=== PATIENT | female | born 1950 | race Caucasian/White ===

== ENCOUNTER 2018-07-02 02:31 | Inpatient (IN) | payer MEDICARE ==
[2018-07-02 04:14] LABS: Bilirubin Negative (Negative); Blood, Urine Negative (Negative); Clarity CLOUDY (Clear); Glucose, Urine (Dipstick) 100 mg/dL (Negative); Leukocyte Small (Negative); Nitrite Negative (Negative); Protein, Urine (Dipstick) Negative (Neg-Trace); Specific Gravity, Urine 1.013 (1.002-1.036); Urobilinogen 0.2 mg/dL (0.2-1.0); pH, Urine 5.5 (5.0-9.0)
[2018-07-02 04:18] LABS: CKMB 1.1 ng/mL (0-6.6)
[2018-07-02 04:33] LABS: Bacteria/HPF 3+ HPF (None Seen); Hyaline Casts/LPF NONE SEEN LPF (0-3 Hyaline); RBC/HPF 0-3 HPF (0-3); Squamous Epithelial 0-3 HPF (0-3)
[2018-07-02] MEDS ORDERED: cefTRIAXone\\ROCEPHIN 1 GM VIAL ONE (05:53)
[2018-07-02] MEDS ORDERED: Ondansetron ODT 4 MG TAB PO PRN (06:11)
[2018-07-02] MEDS ORDERED: Acetaminophen 325 MG TAB PO PRN (06:11)
[2018-07-02] MEDS ORDERED: Ondansetron PF 4 MG/2 ML Vial IVP PRN (06:11)
[2018-07-02] MEDS ORDERED: Dextrose 5% in Water 1,000 ML IV PRN (06:13)
[2018-07-02] MEDS ORDERED: Dextrose 50% Abboject 50 ML SYRINGE SLOW IVP PRN (06:13)
[2018-07-02] MEDS ORDERED: Diltiazem 125 MG in Sodium Chloride 0.9% 100 ML IVPB SCH (06:45)
[2018-07-02 07:03] LABS: Troponin I 0.043 ng/mL (< 0.028)
--- NOTE | 2018-07-02 07:48 | HP ---
PRIMARY CARE DOCTOR: CODE STATUS: Full code. TIME OF EVALUATION: 6 a.m. CHIEF COMPLAINT: Chest tightness and feeling weak, symptoms started around 2 p.m., lasted till the patient got to the hospital with no clear triggers. No alleviating factors. The patient reported that this is new for her. She reported that she has not had any history of atrial fibrillation. Also, she does have a history of PAD, that has been treated by Dr. Krishnamurthy. She reported having stents over the lower extremity. REVIEW OF SYSTEMS: CONSTITUTIONAL: No fever or chills. The patient reported generalized weakness. RESPIRATORY: No cough, sputum production, or shortness of breath. CARDIOVASCULAR: Chest pain in the epigastric area. No specific radiation, associated with palpitations. GASTROINTESTINAL: No nausea. No vomiting, diarrhea, or abdominal pain. MISSION SUPPORT SPECIALIST: No dizziness, headache, or feeling lightheaded. GENITOURINARY: No burning on urination. EXTREMITIES: No leg swelling. All other systems were reviewed and negative except for the findings mentioned above. PAST MEDICAL HISTORY: Includes coronary artery disease, congestive heart failure, diabetes type 2 non-insulin, hypertension. PSYCH HISTORY: No previous psych history. FAMILY HISTORY: Reviewed and non contributory to current presentation. SOCIAL HISTORY: No alcohol. No drugs. No smoking history. KNOWN ALLERGIES: . REPORTED MEDICATIONS: 1. Aspirin. 2. Clopidogrel. 3. Isosorbide mononitrate. 4. Lisinopril. 5. Simvastatin. 6. Toprol-XL. 7. Levemir. 8. NovoLog. PHYSICAL EXAMINATION: VITAL SIGNS: On presentation, blood pressure 148/88 with heart rate 91, respiratory rate was 26, and O2 saturation 94% on room air. GENERAL APPEARANCE: The patient is alert, oriented, not in acute distress. HEENT: Eyes; normal conjunctivae. Moist oral mucosa. Anicteric. No JVD. RESPIRATORY: Bilateral air entry. No rales. No wheezes. Symmetric expansion. CARDIOVASCULAR: The patient has regular rhythm, tachycardia, no murmurs, no gallop, no edema. ABDOMEN: Soft. Normal bowel sounds. MUSCULOSKELETAL: Baseline range of motion and strength. No tenderness. SKIN: Warm and intact. No pallor. No rash. No redness. Peripheral pulses are present. Capillary refill seems to be intact. NEUROLOGIC: No evidence of any new focal weakness. Baseline speech. Cranial nerves seems to be intact. PSYCH: The patient is in good mood. No anxiety. Optimal judgment. IMAGING DATA: EKG was reviewed. The patient has had fibrillation with a rate of 93, ND undetermined, QRS 84, QT corrected 479. LABORATORY DATA: Labs are reviewed. The patient has beta natriuretic peptide of 502. TSH 0.134. Troponin 0.041. The urine was done and shows white count in urine with glucosuria, 3+ bacteria. Hematology; white count 9.9, hemoglobin 11.9, MCV 84, platelet count 261. VBG was done, pH is 7.42, pCO2 of 42, pO2 of 89. Chemistry ; potassium 5, serum sodium 137, chloride 102, carbon dioxide 25, BUN 26, creatinine 1.0, GFR 51, glucose 211, calcium 9.8, magnesium 2.3, total bilirubin 0.5, direct bilirubin 0.2. ASTs and ALTs were normal. Troponin 0.041 with beta natriuretic peptide of 502. ASSESSMENT AND PLAN: The patient will be placed in the hospital with following medical problems: 1. Atrial fibrillation with RVR: The patient has been started on Cardizem drip. We will consult Cardiology. We will follow recommendations. 2. Uncontrolled diabetes with blood sugar of 211. We will start the patient on sliding scale for optimal control. Diabetic diet is recommended. 3. Mildly elevated troponin. This could be secondary to underlying arrhythmia due to demand ischemia. We will monitor. We will trend troponins. We will treat accordingly. 4. History of peripheral vascular disease, this is chronic, stable, reconcile home medications. Can be followed as outpatient. 5. History of congestive heart failure. This is chronic, seems to be stable, we will reconcile home medications. 6. Uncontrolled hypertension, on presentation with systolic blood pressure 148, reconcile home medications and adjust as needed. 7. Deep venous thrombosis prophylaxis. Job ID: [id number] [facility]
[2018-07-02] MEDS ORDERED: Furosemide 40 MG/4 ML VIAL ONE (07:52)
[2018-07-02] MEDS ORDERED: Senokot S 8.6-50 MG TAB PO PRN (08:44)
[2018-07-02] MEDS ORDERED: Loratadine 10 MG TAB PO PRN (08:44)
[2018-07-02] MEDS ORDERED: Artificial Tears 18 DROP/0.9 ML EA EYE PRN (08:44)
[2018-07-02] MEDS ORDERED: Cepastat Lozenges 1 LOZ PO PRN (08:44)
[2018-07-02] MEDS ORDERED: Eucerin (Mineral Oil/Petrolatum,White) 30 gm Jar TOP PRN (08:44)
[2018-07-02] MEDS ORDERED: Bisacodyl 10 MG SUPP PR PRN (08:44)
[2018-07-02] MEDS ORDERED: Diabetic Tussin 200 MG/10 ML UDCUP PO PRN (08:44)
[2018-07-02] MEDS ORDERED: Sodium Chloride 0.65% Nasal 44 ML BOT EA NARE PRN (08:44)
[2018-07-02] MEDS ORDERED: Loperamide HCl 2 MG CAP PO PRN (08:44)
[2018-07-02] MEDS ORDERED: Zolpidem Tartrate 5 MG TAB PO PRN (08:44)
[2018-07-02] MEDS ORDERED: Labetalol HCl 100 MG/20 ML VIAL SLOW IVP PRN (08:44)
[2018-07-02] MEDS ORDERED: HumaLOG 300 UNITS/3 ML VIAL ONE ×2 (08:49→17:16)
[2018-07-02] MEDS: HumaLOG 300 UNITS/3 ML VIAL SC PRN ×2 (08:55→17:20)
[2018-07-02 09:54] LABS: Troponin I 0.049 ng/mL (< 0.028)
--- NOTE | 2018-07-02 10:31 | PDOC.PN ---
- Subjective Encounter Start Date: 07/02/18 Encounter Start Time: 07:00 -: old records requested/rev Patient seen and examined. No new complaints. No overnight events - Objective Resuscitation Status - Order Detail: 07/02/18 06:11 Resuscitation Status Routine Resuscitation Status: FULL: Full Resuscitation MAR Reviewed: Yes Additional Labs: Accuchecks 07/02/18 08:34 POC Glucose 333 H Radiology Reviewed by me: Yes EKG Reviewed by me: Yes Phys Exam - Physical Examination Constitutional: NAD HEENT: PERRLA, moist MMs, sclera anicteric Neck: no JVD, supple Respiratory: no wheezing, no rales, no rhonchi Cardiovascular: no significant murmur, irregular Gastrointestinal: soft, non-tender, no distention, positive bowel sounds Musculoskeletal: no edema, pulses present Neurological: non-focal, normal sensation Lymphatic: no nodes Psychiatric: normal affect Skin: no rash, normal turgor Dx/Plan (1) Atrial fibrillation with RVR Code(s): I48.91 - UNSPECIFIED ATRIAL FIBRILLATION Status: Acute (2) Type [address] elevation Code(s): I21.A1 - MYOCARDIAL INFARCTION TYPE 2 Status: Acute (3) Diabetes type 2, controlled Code(s): E11.9 - TYPE 2 DIABETES MELLITUS WITHOUT COMPLICATIONS Status: Chronic (4) Hypertension Code(s): I10 - ESSENTIAL (PRIMARY) HYPERTENSION Status: Chronic (5) Stage C chronic diastolic congestive heart failure Code(s): I50.32 - CHRONIC DIASTOLIC (CONGESTIVE) HEART FAILURE Status: Chronic - Plan cont current plan of care * start home dose of lantus * continue cardizem drip * change admission to [facility] as she appears stable with current treatment * cardiology consulted * will repeat labs * medication reviewed as below * symptomatic treatment. Review of Systems - Review of Systems ENT: negative: Ear Pain, Ear Discharge, Nose Pain, Nose Discharge, Nose Congestion, Mouth Pain, Mouth Swelling, Throat Pain, Throat Swelling, Other Respiratory: negative: Cough, Dry, Shortness of Breath, Hemoptysis, SOB with Excertion, Pleuritic Pain, Sputum, Wheezing Cardiovascular: negative: chest pain, palpitations, orthopnea, paroxysmal nocturnal dyspnea, edema, light headedness, other Gastrointestinal: negative: Nausea, Vomiting, Abdominal Pain, Diarrhea, Constipation, Melena, Hematochezia, Other Genitourinary: negative: Dysuria, Frequency, Incontinence, Hematuria, Retention , Other Musculoskeletal: negative: Neck Pain, Shoulder Pain, Arm Pain, Back Pain, Hand Pain, Leg Pain, Foot Pain, Other - Medications/Allergies Allergies/Adverse Reactions: Allergies Allergy/AdvReac Type Severity Reaction Status Date / Time codeine Allergy Mild Verified 12/19/12 03:58 Medications: Current Medications Acetaminophen (Tylenol) 650 mg PO Q4H PRN PRN Reason: Headache/Fever/Mild Pain (1-3) Artificial Tears (Tears Naturale) 2 drop EA EYE PRN PRN PRN Reason: Dry Eyes Aspirin (Aspirin Chewable) 81 mg PO DAILY JERRICA Atorvastatin Calcium (Lipitor) 20 mg PO HS JERRICA Bisacodyl (Dulcolax) 10 mg IA DAILYPRN PRN PRN Reason: Constipation Clopidogrel Bisulfate (Plavix) 75 mg PO DAILY JERRICA Dextrose/Water (Dextrose 50%) 25 gm SLOW IVP PRN PRN PRN Reason: Hypoglycemia Enoxaparin Sodium (Lovenox) 40 mg SC 0900 JERRICA Glucagon (Glucagon) 1 mg IM PRN PRN PRN Reason: Hypoglycemia Guaifenesin (Robitussin Sf) 200 mg PO Q4H PRN PRN Reason: Cough Dextrose/Water (D5w) 1,000 mls @ 0 mls/hr IV .Q0M PRN PRN Reason: Hypoglycemia Diltiazem HCl 125 mg/ Sodium (Chloride) 125 mls @ 5 mls/hr IVPB INF JERRICA; Protocol Insulin Glargine 30 units/ (Miscellaneous Medication) 0.3 mls @ 0 mls/hr SC HS [facility] Insulin Glargine 80 units/ (Miscellaneous Medication) 0.8 mls @ 0 mls/hr SC QAM [facility] Insulin Human Lispro (Humalog) 0 units SC .MILD SLIDING SCALE PRN PRN Reason: Mild Correctional Scale Last Admin: 07/02/18 08:55 Dose: 5 unit Labetalol HCl (Normodyne) 20 mg SLOW IVP Q4H PRN PRN Reason: SBP > 180 and HR >/= 70 Lisinopril (Zestril) 10 mg PO DAILY [facility] Loperamide HCl (Imodium) 2 mg PO PRN PRN PRN Reason: Diarrhea/Loose Stools Loratadine (Claritin) 10 mg PO DAILYPRN PRN PRN Reason: Sinus Symptoms Metoprolol Succinate (Toprol Xl) 25 mg PO DAILY JERRICA Mineral Oil/White Petrolatum (Eucerin Cream) 0 gm TOP BIDPRN PRN PRN Reason: Dry Skin Ondansetron HCl (Zofran Odt) 4 mg PO Q6H PRN PRN Reason: Nausea/Vomiting Ondansetron HCl (Zofran) 4 mg IVP Q6H PRN PRN Reason: Nausea/Vomiting Senna/Docusate Sodium (Senokot S) 2 tab PO BID PRN PRN Reason: Constipation Sodium Chloride (Flush - Normal Saline) 10 ml IVF Q12HR JERRICA Sodium Chloride (Flush - Normal Saline) 10 ml IVF PRN PRN PRN Reason: Saline Flush Sodium Chloride ([place] Nasal [place] 0.65%) 0 ml EA NARE QIDPRN PRN PRN Reason: Nasal Congestion Throat Lozenges (Cepastat Lozenges) 1 dany PO Q2H PRN PRN Reason: Sore Throat Zolpidem Tartrate (Ambien) 5 mg PO HSPRN PRN PRN Reason: Insomnia
[2018-07-02] MEDS: Enoxaparin Sodium 40 MG/0.4 ML SYRINGE SC SCH (10:40)
[2018-07-02] MEDS: Clopidogrel Bisulfate 75 MG TAB PO SCH (10:40)
[2018-07-02] MEDS: Lisinopril 10 MG TAB PO SCH (10:40)
[2018-07-02] MEDS: Aspirin Chewable 81 MG TAB PO SCH (10:40)
[2018-07-02] MEDS ORDERED: Metoprolol Tartrate 25 MG TAB ONE (10:46)
[2018-07-02] MEDS ORDERED: Clopidogrel Bisulfate 75 MG TAB ONE (10:46)
[2018-07-02] MEDS ORDERED: Aspirin Chewable 81 MG TAB ONE (10:46)
[2018-07-02] MEDS ORDERED: Enoxaparin Sodium 40 MG/0.4 ML SYRINGE ONE (10:46)
[2018-07-02] MEDS ORDERED: Lisinopril 10 MG TAB ONE (10:46)
[2018-07-02 18:28] VITALS: BMI 30.8
[2018-07-02] MEDS: Atorvastatin Calcium 20 MG TAB PO SCH (20:52)
[2018-07-02] MEDS ORDERED: Simvastatin 40 MG TAB PO SCH (21:00)
[2018-07-02] MEDS: Insulin Glargine 30 UNITS in Pre-Filled Syringe 1 EACH SC SCH (22:34)
[2018-07-03] MEDS: HumaLOG 300 UNITS/3 ML VIAL SC PRN ×2 (03:01→06:06)
[2018-07-03 05:19] LABS: #Eosinphils 0.1 thou/uL (0.0-0.7); #Lymphocytes 1.2 thou/uL (1.20-3.40); #Monocytes 0.8 thou/uL (0.11-0.59); #Neutrophils 5.9 thou/uL (1.40-6.50); %Basophils 0.5 % (0.0-1.0); %Eosinophils 0.7 % (0.0-10.0); %Lymphocytes 15.1 % (21.0-51.0); %Monocytes 10.2 % (0.0-10.0); %Neutrophils 73.5 % (42.0-75.0); Hemoglobin 13.3 g/dL (12.0-16.0); Mean Corpuscular HGB CONC 32.6 g/dL (32.0-36.0); Mean Corpuscular Hemoglobin 28.1 pg (27.0-31.0); Mean Corpuscular Volume 86.4 fL (78.0-98.0); Mean Platelet Volume 7.7 fL (7.4-10.4); Platelet Count 282 thou/uL (130-400); RBC Distribution Width 12.9 % (11.5-14.5); Red Blood Cell (RBC) Count 4.73 mill/uL (4.20-5.40); White Blood Cell (WBC) Count 8.1 thou/uL (4.8-10.8)
[2018-07-03 05:33] LABS: ALT (SGPT) 25 U/L (8-55); AST (SGOT) 21 U/L (5-34); Albumin 4.2 g/dL (3.4-4.8); Alkaline Phosphatase 213 U/L (40-150); Bilirubin, Direct 0.2 mg/dL (0.1-0.3); Bilirubin, Total 0.5 mg/dL (0.2-1.2)
[2018-07-03 05:39] LABS: Anion Gap 15 mmol/L (10-20); BUN (Urea Nitrogen) 23 mg/dL (9.8-20.1); Calc. Creatinine Clearance 48 mL/min (70-130); Calcium 9.9 mg/dL (7.8-10.44); Carbon Dioxide 26 mmol/L (23-31); Cardiac Risk 4.5 (Less than 4.5); Chloride 100 mmol/L (98-107); Cholesterol 209 mg/dl (< 200 Desired); Estimated GFR-MDRD 42; Glucose 347 mg/dL (80-115); HDL Cholesterol 46 mg/dL (>60 Neg Risk); LDL Cholesterol, Calculated 128 mg/dL; Potassium 4.1 mmol/L (3.5-5.1); Sodium 137 mmol/L (136-145); Triglycerides 175 mg/dL (Less than 150); Uric Acid 7.6 mg/dL (2.6-6.0)
[2018-07-03] MEDS: Clopidogrel Bisulfate 75 MG TAB PO SCH (09:30)
[2018-07-03] MEDS: Lisinopril 10 MG TAB PO SCH (09:30)
[2018-07-03] MEDS: Insulin Glargine 80 UNITS in Pre-Filled Syringe 1 EACH SC SCH (09:31)
[2018-07-03] MEDS: Aspirin Chewable 81 MG TAB PO SCH (09:31)
[2018-07-03] MEDS: Enoxaparin Sodium 40 MG/0.4 ML SYRINGE SC SCH (09:31)
--- NOTE | 2018-07-03 10:10 | PDOC.PN ---
- Subjective Encounter Start Date: 07/03/18 Encounter Start Time: 10:05 Subjective: f/u for A-fib RVR with Type II AR on Cardizem gtt. States her glucose -: is erratic bc she is receiving Lantus instead of her home Levemir. - Objective Resuscitation Status - Order Detail: 07/02/18 06:11 Resuscitation Status Routine Resuscitation Status: FULL: Full Resuscitation MAR Reviewed: Yes Vital Signs & Weight: Vital Signs (12 hours) Temp Pulse Resp BP BP Pulse Ox 07/03/18 09:30 150/91 H 07/03/18 07:41 99.3 F 90 16 157/68 H 93 L 07/03/18 04:00 98.3 F 99 19 166/70 H 95 07/03/18 00:00 98.4 F 101 H 19 120/64 95 Weight Weight 158 lb Result Diagrams: 07/03/18 04:54 07/03/18 04:54 Additional Labs: Accuchecks 07/03/18 07/03/18 07/02/18 06:04 02:20 21:12 POC Glucose 321 H 386 H 379 H 07/02/18 07/02/18 17:13 17:12 POC Glucose 473 H 443 H Laboratory Tests 05/13/14 04/29/18 07/01/18 09:59 10:10 21:10 Creatinine 1.01 1.06 Uric Acid Triglycerides Cholesterol LDL Cholesterol, Calc HDL Cholesterol TSH 3rd Generation 0.6721 Free T4 Free T3 07/02/18 07/02/18 07/02/18 03:55 03:55 06:20 Creatinine Uric Acid Triglycerides Cholesterol LDL Cholesterol, Calc HDL Cholesterol TSH 3rd Generation 0.1346 L Free T4 1.01 Free T3 2.56 07/03/18 04:54 Creatinine Uric Acid 7.6 H Triglycerides 175 H Cholesterol 209 H LDL Cholesterol, Calc 128 HDL Cholesterol 46 TSH 3rd Generation Free T4 Free T3 Radiology Reviewed by me: Yes (2D echo - EF 60-65%, mod-severe LAE, pulm press 70mmHg) EKG Reviewed by me: Yes (Tele - A-fib in 90's) Phys Exam - Physical Examination Constitutional: NAD HEENT: PERRLA, sclera anicteric, oral pharynx no lesions Neck: no nodes, no JVD, supple, full ROM Respiratory: no wheezing, no rales, no rhonchi, clear to auscultation bilateral S1, S2 Cardiovascular: no rub, gallop, irregular Gastrointestinal: soft, non-tender, no distention, positive bowel sounds Musculoskeletal: no edema, pulses present Neurological: normal sensation, moves all 4 limbs Psychiatric: A&O x 3 Skin: normal turgor, cap refill <2 seconds Dx/Plan (1) Atrial fibrillation with RVR Code(s): I48.91 - UNSPECIFIED ATRIAL FIBRILLATION Status: Acute Comment: Wean off Cardizem gtt, start Diltiazem 60mg BID, Continue Metoprolol 25mg daily , CHADsVasc2 score 4, consider OAC options (2) RIVKA (acute kidney injury) Code(s): N17.9 - ACUTE KIDNEY FAILURE, UNSPECIFIED Status: Acute Comment: Mild elevation above baseline, avoid nephrotoxic meds and limit contrast exposure, serial creatinine (3) Type [address] elevation Code(s): I21.A1 - MYOCARDIAL INFARCTION TYPE 2 Status: Acute Comment: Suspected given A-fib RVR, ASA/Plavix, Metoprolol, Lipitor (4) Hypertension Code(s): I10 - ESSENTIAL (PRIMARY) HYPERTENSION Status: Chronic Qualifiers: Hypertension type: essential hypertension Qualified Code(s): I10 - Essential (primary) hypertension Comment: Resume home BP regimen, serial monitoring titrating to optimal response (5) Stage C chronic diastolic congestive heart failure Code(s): I50.32 - CHRONIC DIASTOLIC (CONGESTIVE) HEART FAILURE Status: Chronic Comment: Appears compensated currently, EF 60-65% (6) CKD (chronic kidney disease), stage III Code(s): N18.3 - CHRONIC KIDNEY DISEASE, STAGE 3 (MODERATE) Status: Chronic Comment: Avoid nephrotoxic agents and limit contrast exposure - Plan social problems specialist, out of bed/ambulate, DVT proph w/SCDs Stable currently -: Wean off Cardizem gtt -: Start Diltiazem 60mg BID -: Continue Metoprolol 25mg daily -: Start Eliquis 5mg po BID * Add Novalog 20u AC * Cardiology consult pending
[2018-07-03] MEDS ORDERED: Diltiazem HCl SR 60 mg Capsule PO SCH ×2 (10:15→11:00)
[2018-07-03] MEDS ORDERED: Apixaban 5 MG TAB PO SCH ×2 (11:15→12:00)
[2018-07-03] MEDS: HumaLOG 300 UNITS/3 ML VIAL SC SCH ×2 (13:13→17:34)
[2018-07-03] MEDS: Apixaban 5 MG TAB PO SCH ×2 (20:47→20:49)
[2018-07-03] MEDS: Diltiazem HCl SR 60 mg Capsule PO SCH (20:47)
[2018-07-03] MEDS: Atorvastatin Calcium 20 MG TAB PO SCH (20:47)
[2018-07-03] MEDS: Insulin Glargine 30 UNITS in Pre-Filled Syringe 1 EACH SC SCH (20:48)
[2018-07-04] MEDS: Aspirin Chewable 81 MG TAB PO SCH (09:09)
[2018-07-04] MEDS: Lisinopril 10 MG TAB PO SCH (09:10)
[2018-07-04] MEDS: Clopidogrel Bisulfate 75 MG TAB PO SCH (09:10)
[2018-07-04] MEDS: Diltiazem HCl SR 60 mg Capsule PO SCH (09:10)
[2018-07-04] MEDS: Insulin Glargine 80 UNITS in Pre-Filled Syringe 1 EACH SC SCH (09:11)
[2018-07-04] MEDS: HumaLOG 300 UNITS/3 ML VIAL SC SCH ×2 (09:12→12:30)
--- NOTE | 2018-07-04 11:20 | PDOC.PN ---
- Subjective Encounter Start Date: 07/04/18 Encounter Start Time: 11:15 Subjective: f/u for new-onset A-fib RVR on Cardizem gtt now rate controlled. Feels ok -: overall and no CP, SOB. - Objective Resuscitation Status - Order Detail: 07/02/18 06:11 Resuscitation Status Routine Resuscitation Status: FULL: Full Resuscitation MAR Reviewed: Yes Vital Signs & Weight: Vital Signs (12 hours) Temp Pulse Resp BP BP Pulse Ox 07/04/18 09:10 133/65 07/04/18 07:55 98.8 F 88 20 133/65 93 L 07/04/18 07:30 93 L 07/04/18 03:53 98.5 F 80 19 127/62 93 L 07/04/18 00:00 99.2 F 87 19 129/58 L 92 L Weight Weight 158 lb I&O: 07/03/18 07/04/18 07/05/18 06:59 06:59 06:59 Intake Total 300 Balance 300 Result Diagrams: 07/03/18 04:54 07/03/18 04:54 Additional Labs: Accuchecks 07/04/18 07/04/18 07/03/18 08:12 06:14 19:27 POC Glucose 158 H 143 H 201 H 07/03/18 07/03/18 16:13 13:13 POC Glucose 310 H 470 H Laboratory Tests 05/13/14 04/29/18 07/01/18 09:59 10:10 21:10 Creatinine 1.01 1.06 Uric Acid Triglycerides Cholesterol LDL Cholesterol, Calc HDL Cholesterol TSH 3rd Generation 0.6721 Free T4 Free T3 07/02/18 07/02/18 07/02/18 03:55 03:55 06:20 Creatinine Uric Acid Triglycerides Cholesterol LDL Cholesterol, Calc HDL Cholesterol TSH 3rd Generation 0.1346 L Free T4 1.01 Free T3 2.56 07/03/18 04:54 Creatinine Uric Acid 7.6 H Triglycerides 175 H Cholesterol 209 H LDL Cholesterol, Calc 128 HDL Cholesterol 46 TSH 3rd Generation Free T4 Free T3 Radiology Reviewed by me: Yes (Echo - EF 60-65%, PA press 70mmHg) EKG Reviewed by me: Yes (Tele - A-fib in 80's) Phys Exam - Physical Examination Constitutional: NAD HEENT: PERRLA, sclera anicteric, oral pharynx no lesions Neck: no nodes, no JVD, supple, full ROM Respiratory: no wheezing, no rales, no rhonchi, clear to auscultation bilateral S1, S2 Cardiovascular: no rub, gallop, irregular Gastrointestinal: soft, non-tender, no distention, positive bowel sounds Musculoskeletal: no edema, pulses present Neurological: normal sensation, moves all 4 limbs Psychiatric: A&O x 3 Skin: normal turgor, cap refill <2 seconds Dx/Plan (1) Atrial fibrillation with RVR Code(s): I48.91 - UNSPECIFIED ATRIAL FIBRILLATION Status: Acute Comment: D/ C Cardizem gtt, start Diltiazem 60mg BID, Continue Metoprolol 25mg daily, CHADsVasc2 score 4, continue Eliquis 5mg BID, Consult Cardiology (2) RIVKA (acute kidney injury) Code(s): N17.9 - ACUTE KIDNEY FAILURE, UNSPECIFIED Status: Acute Comment: Mild elevation above baseline, avoid nephrotoxic meds and limit contrast exposure, serial creatinine (3) Type [address] elevation Code(s): I21.A1 - MYOCARDIAL INFARCTION TYPE 2 Status: Acute Comment: Suspected given A-fib RVR, ASA/Plavix, Metoprolol, Lipitor (4) Hypertension Code(s): I10 - ESSENTIAL (PRIMARY) HYPERTENSION Status: Chronic Qualifiers: Hypertension type: essential hypertension Qualified Code(s): I10 - Essential (primary) hypertension Comment: Resume home BP regimen, serial monitoring titrating to optimal response (5) Stage C chronic diastolic congestive heart failure Code(s): I50.32 - CHRONIC DIASTOLIC (CONGESTIVE) HEART FAILURE Status: Chronic Comment: Appears compensated currently, EF 60-65% (6) CKD (chronic kidney disease), stage III Code(s): N18.3 - CHRONIC KIDNEY DISEASE, STAGE 3 (MODERATE) Status: Chronic Comment: Avoid nephrotoxic agents and limit contrast exposure - Plan out of bed/ambulate, DVT proph w/SCDs Stable currently -: Continue Metoprolol, Cardizem for rate control therapy -: Consult Cardiology today -: Continue Eliquis 5mg BID -: AM lab: BMP, CBC, stool guaiac * .
[2018-07-04 11:42] VITALS: BP 143/61; TEMP 97.9
--- NOTE | 2018-07-04 13:58 | CON ---
DATE OF CONSULTATION: 07/04/2018 PRIMARY LAUNCH OPERATOR: Dr. Krishnamurthy from [facility]. HISTORY OF PRESENT ILLNESS: Ms. Osorio is a very pleasant 68-year-old white female, who comes to the hospital for not feeling well. She was seen in the ER and was found to be in AFib with RVR, heart rate in the 150s. She was placed on a diltiazem drip and started on full anticoagulation. Eventually, she was rate controlled. Cardiology has been consulted for further evaluation. I spoke with Ms. Osorio about possibly doing a LOYD cardioversion and explained her situation. She says she is very well aware of having AFib as some family members have had it, but she has never been told she has had it before. Dr. Krishnamurthy follows her for coronary artery disease. She has had stents in her heart about a year and a half ago and peripheral stents, which she has had about a year and half ago as well in 2017. PAST MEDICAL HISTORY: 1. Coronary artery disease as above. 2. History of diastolic heart failure. 3. Type 2 diabetes. 4. Hypertension. 5. Peripheral vascular disease. PAST SURGICAL HISTORY: 1. Coronary stents. 2. Left leg stenting. 3. Bilateral carotid endarterectomies. SOCIAL HISTORY: No alcohol, tobacco or drugs. FAMILY HISTORY: Noncontributory. OUTPATIENT MEDICATIONS: 1. Levemir. 2. NovoLog. 3. Imdur 30 mg a day. 4. Zocor 40 mg q.p.m. 5. Aspirin 81 a day. 6. Metoprolol 25 mg a day. 7. Lisinopril 10 mg a day. 8. Clopidogrel 75 mg a day. ALLERGIES: CODEINE. REVIEW OF SYSTEMS: A 12-point review of systems was done and was found to be negative unless stated in the history of present illness. PHYSICAL EXAMINATION: VITAL SIGNS: Temperature 97.9, pulse 87, respiratory rate 20, sat 92% on room air, and blood pressure 143/61. GENERAL: Awake, alert, and oriented x3. No distress. HEENT: Normocephalic and atraumatic. NECK: Supple. LUNGS: Clear. CARDIOVASCULAR: S1 and S2. No S3 or S4. No murmurs. ABDOMEN: Soft. Positive bowel sounds. EXTREMITIES: No edema. SKIN: Warm and dry. LABORATORY DATA: Laboratory work was reviewed. TSH was low at 0.13, but free T3 and free T4 were both normal. Troponin was in the indeterminate range. BNP was 802. CMP was unremarkable and CBC was unremarkable. DIAGNOSTIC DATA: Echocardiogram was reviewed, EF at 60% to 65%. She was in AFib during this study. Pulmonary pressures were elevated at 70 mmHg. ASSESSMENT/PLAN: 1. New-onset atrial fibrillation, currently rate controlled. 2. History of coronary artery disease. 3. History of peripheral vascular disease. PLAN: 1. We spoke with Ms. Osorio about possibly doing a LOYD cardioversion. She currently would prefer that Dr. Krishnamurthy, her primary golf club repairer, do any procedures on her. I would have to agree with her. At this point, we will plan on continue the rate control with current dose of diltiazem and metoprolol. She has been started on Eliquis for stroke prophylaxis, which I completely agree with. Her CHADS-VASc score would be 5 given her age, vascular disease, female, high blood pressure, and diabetes. 2. She should be able to be discharged home today. 3. She will follow up with Dr. Krishnamurthy within the next month. Thank you for letting me to participate in the care of your patient. We will sign off. Please call with any questions. Job ID: [id number]
--- NOTE | 2018-07-05 03:45 | DIS ---
DATE OF ADMISSION: 07/02/2018 DATE OF DISCHARGE: 07/04/2018 DISCHARGE DIAGNOSES: 1. New-onset atrial fibrillation with rapid ventricular response, rate improved. 2. Acute kidney injury, resolving. 3. Type [address] elevation, medically managed. 4. Hypertension, stable. 5. Chronic diastolic congestive heart failure stage C, compensated with ejection fraction of 60% to 65%. 6. Chronic kidney disease stage 3. CONSULTATIONS: Dr. Zavaleta with Cardiology Service. PERTINENT LAB AND X-RAY FINDINGS: Creatinine ranged between 1.06 to 1.25. Estimated GFR ranged between 42 to 51. BNP 803. Troponin I ranged between 0.041 to 0.049. TSH 0.135, free T4 1.01, free T3 2.56. Total cholesterol 209, triglycerides 175, HDL 46, LDL 128. 2D transthoracic echocardiogram dated 07/02/2018, showed ejection fraction of 60% to 65%, moderate to severe left atrial enlargement, moderate mitral valve regurgitation, pulmonary artery systolic pressure estimated at 70 mmHg, moderate tricuspid valve regurgitation. HOSPITAL COURSE: The patient was initially admitted after presenting with chest tightness and generalized weakness with EKG and telemetry monitoring showing atrial fibrillation with rapid ventricular response. The patient was initially managed with Cardizem infusion and resumption of metoprolol. The patient was initially managed with rate control strategy with overall decreased heart rate into the 80s sustained after discontinuation of Cardizem infusion. The patient was initiated on Cardizem 60 mg b.i.d. with additional metoprolol 25 mg daily and anticoagulation with Eliquis 5 mg twice daily. The patient's CHADSVASc2 score was 5 necessitating anticoagulation. The patient was evaluated by Cardiology Service with recommendations for rate control strategy and follow up with her primary v groove cutter after discharge. The patient overall remained clinically stable with supportive management and current telemetry monitoring shows atrial fibrillation with heart rates in the 80s. I have examined the patient at the time of discharge and discussed followup instructions. The patient verbalized understanding and agreement, and ready for discharge on 07/04/2018. DISCHARGE MEDICATIONS: 1. Enteric-coated aspirin 81 mg p.o. daily. 2. Eliquis 5 mg p.o. b.i.d. 3. NovoLog 20 units subcutaneously b.i.d. 4. Levemir 80 units subcutaneously q.a.m. and 30 units subcutaneously at bedtime. 5. Isosorbide mononitrate 30 mg p.o. daily. 6. Lisinopril 10 mg p.o. daily. 7. Toprol-XL 25 mg p.o. daily. 8. Zocor 40 mg p.o. at bedtime. 9. Diltiazem SR 60 mg p.o. b.i.d. FOLLOWUP: The patient may follow up with her primary care provider, Dr. Boyd, within 7 days of discharge. The patient will follow up with Dr. Stephen Krishnamurthy, Cardiology at [facility], in 3 to 4 weeks after discharge. CONDITION ON DISCHARGE: Stable. ACTIVITY: Ad-fransisco. DIET: Heart healthy. CODE STATUS: Full. DISPOSITION: Home on 07/04/2018. Job ID: [id number]
== END 2018-07-04 15:46 | disposition home or self-care (01) | DRG 281 ==
LOC: ERS 02:31 → ERHOLD 06:51 → 2SE 17:46
PROVIDERS: ADMIT Hospitalist; ATTEND Hospitalist
DX: I48.91 Unspecified atrial fibrillation (principal); I21.A1 Myocardial infarction type 2; I13.0 Hypertensive heart and chronic kidney disease with heart failure and stage 1 through stage 4 chronic kidney disease, or unspecified chronic kidney disease; N17.9 Acute kidney failure, unspecified; I50.32 Chronic diastolic (congestive) heart failure; N18.3 Chronic kidney disease, stage 3 (moderate); I25.10 Atherosclerotic heart disease of native coronary artery without angina pectoris; E11.22 Type 2 diabetes mellitus with diabetic chronic kidney disease; E11.51 Type 2 diabetes mellitus with diabetic peripheral angiopathy without gangrene; Z95.818 Presence of other cardiac implants and grafts; Z79.82 Long term (current) use of aspirin; Z79.899 Other long term (current) drug therapy; Z79.4 Long term (current) use of insulin
CPT/HCPCS: 36415; 36416; 80048; 80061; 80076; 81003; 81015; 82553; 83880; 84439; 84443; 84481; 84484; 84550; 85025; 93005; 93306; 96365; 96366; 96367; 96375; J0696; J1650; J1825; J1940; J3490

== ENCOUNTER 2018-10-16 03:10 | Inpatient (IN) | payer MEDICARE ==
[2018-10-16 04:01] LABS: #Basophils 0.1 thou/uL (0.0-0.2); #Monocytes 0.3 thou/uL (0.11-0.59); #Neutrophils 8.6 thou/uL (1.40-6.50); %Basophils 0.8 % (0.0-1.0); %Eosinophils 0.5 % (0.0-10.0); %Lymphocytes 9.8 % (21.0-51.0); %Monocytes 2.6 % (0.0-10.0); %Neutrophils 86.3 % (42.0-75.0); Hemoglobin 8.1 g/dL (12.0-16.0); Mean Corpuscular HGB CONC 32.7 g/dL (32.0-36.0); Mean Corpuscular Hemoglobin 29.6 pg (27.0-31.0); Mean Corpuscular Volume 90.3 fL (78.0-98.0); Mean Platelet Volume 7.9 fL (7.4-10.4); Platelet Count 195 thou/uL (130-400); RBC Distribution Width 12.7 % (11.5-14.5); Red Blood Cell (RBC) Count 2.75 mill/uL (4.20-5.40); White Blood Cell (WBC) Count 9.9 thou/uL (4.8-10.8)
[2018-10-16] MEDS ORDERED: Pantoprazole 80 MG, Admixture Fee 1 EACH in Sodium Chloride 0.9% 100 ML IVPB SCH (04:45)
[2018-10-16 04:55] LABS: Troponin I Less than 0.010 ng/mL (< 0.028)
[2018-10-16] MEDS ORDERED: Ondansetron ODT 4 MG TAB SL PRN (05:31)
[2018-10-16] MEDS ORDERED: Acetaminophen 325 MG TAB PO PRN ×3 (05:31→09:45)
[2018-10-16] MEDS ORDERED: Ondansetron PF 4 MG/2 ML Vial IVP PRN ×2 (05:31→07:40)
[2018-10-16] MEDS ORDERED: Sodium Chloride 0.9% 1,000 ML IV SCH ×2 (05:31→07:45)
[2018-10-16 05:55] VITALS: BMI 33.0
[2018-10-16] MEDS ORDERED: Diabetic Tussin 200 MG/10 ML UDCUP PO PRN (07:40)
[2018-10-16] MEDS ORDERED: Acetaminophen 650 MG Suppository PR PRN (07:40)
[2018-10-16] MEDS ORDERED: Zolpidem Tartrate 5 MG TAB PO PRN (07:40)
[2018-10-16] MEDS ORDERED: Ondansetron ODT 4 MG TAB PO PRN (07:40)
[2018-10-16] MEDS ORDERED: Loratadine 10 MG TAB PO PRN (07:40)
[2018-10-16] MEDS ORDERED: Sodium Chloride 0.65% Nasal 44 ML BOT EA NARE PRN (07:40)
[2018-10-16] MEDS ORDERED: Calcium Carbonate 500 MG ChewTAB PO PRN (07:40)
[2018-10-16] MEDS ORDERED: Artificial Tears 18 DROP/0.9 ML EA EYE PRN (07:40)
[2018-10-16] MEDS ORDERED: Senokot S 8.6-50 MG TAB PO PRN (07:40)
[2018-10-16] MEDS ORDERED: hydrALAZINE 20 MG/ML VIAL SLOW IVP PRN (07:40)
[2018-10-16] MEDS ORDERED: Prevnar 13-Val Conj/PF 0.5 ML SYRINGE IM ONE (08:00)
[2018-10-16] MEDS ORDERED: Dextrose 50% Abboject 50 ML SYRINGE SLOW IVP PRN (10:29)
[2018-10-16] MEDS ORDERED: HumaLOG 300 UNITS/3 ML VIAL SC PRN (10:29)
[2018-10-16] MEDS ORDERED: Dextrose 5% in Water 1,000 ML IV PRN (10:29)
--- NOTE | 2018-10-16 10:38 | RAD ---
Exam: Chest one view HISTORY:Wheezing. Comparison: 04/23/2017 FINDINGS: Cardiac silhouette: Normal Aorta: Unremarkable Pulmonary vessels: Normal Costophrenic angles: Clear LUNGS: No masses or consolidation. Chronic changes of the lung parenchyma. Lungs are mildly hyperinfl ated. Pneumothorax: None Osseous abnormalities: None IMPRESSION: 1. Mild hyperinflation. No acute cardiopulmonary process.
[2018-10-16 13:12] LABS: Hemoglobin 7.9 g/dL (12.0-16.0)
--- NOTE | 2018-10-16 13:25 | HP ---
PRIMARY CARE PHYSICIAN: Sreekanth Boyd MD REASON FOR ADMISSION: Hyperglycemia and hematemesis. HISTORY OF PRESENT ILLNESS: A 68-year-old female, who has underlying history of diabetes on insulin. The patient was having difficulty controlling her blood sugar at home. Her blood sugar was running above 400 despite taking her insulin. The patient started having upper GI bleed at home. She was having coffee-ground emesis as well as fresh blood at home and that is why the patient's took her to [facility]. The patient's hemoglobin was 7.4, and she was given 0.5 unit of blood transfusion on the way to here. The patient's blood sugar was also not well controlled. She was transferred to our hospital and her hemoglobin repeat one was 8.1. The patient was also complaining of wheezing and cough and that is why we did a chest x-ray, which showed no acute process. The patient did not have any further vomiting of blood since she is in our hospital. She does not have any black tarry stool. She does not have any hematochezia. She is not feeling any dizziness, lightheadedness, but she is feeling weak. She denies any chest pain or palpitation. REVIEW OF SYSTEMS: CONSTITUTIONAL: Negative for weight loss or gain, ability to conduct usual activities. SKIN: Negative for rash, itching. EYES: Negative for double vision, pain. ENT/MOUTH: Negative for nose bleeding, neck stiffness, pain, tenderness. CARDIOVASCULAR: Negative for palpitations, dyspnea on exertion, orthopnea. RESPIRATORY: Negative for shortness of breath, wheezing, cough, hemoptysis, fever or night sweats. GASTROINTESTINAL: Negative for poor appetite, abdominal pain, heartburn, nausea, vomiting, constipation, or diarrhea. GENITOURINARY: Negative for urgency, frequency, dysuria, nocturia. MUSCULOSKELETAL: Negative for pain, swelling. NEUROLOGIC/PSYCHIATRIC: Negative for anxiety, depression. ALLERGY/IMMUNOLOGIC: Negative for skin rash, bleeding tendency. Please see my HPI for pertinent positive and negative. All other review of systems reviewed and negative, except as mentioned in HPI. PAST MEDICAL HISTORY: Diabetes type 2, peripheral arterial disease, coronary artery disease, dyslipidemia. PAST SURGICAL HISTORY: Carotid endarterectomy, rectal reconstruction, , tonsillectomy, cardiac catheterization with stent placement, stent placement in leg. PAST PSYCHIATRIC HISTORY: Reviewed and negative. SOCIAL HISTORY: The patient is , lives at home with her . No history of tobacco, alcohol, or illicit drug abuse. FAMILY HISTORY: No family history of coronary artery disease, stroke, or cancer. ALLERGIES: CODEINE. CURRENT HOME MEDICATIONS: 1. Aspirin 81 mg p.o. daily. 2. Plavix 75 mg p.o. at bedtime. 3. NovoLog insulin 15 units subcu b.i.d. 4. Levemir insulin 80 units in the morning and 30 units at bedtime. 5. Imdur 30 mg p.o. daily. 6. Lisinopril 10 mg at bedtime. 7. Toprol-XL 25 mg bedtime. 8. Zocor 40 mg p.o. at bedtime. EMERGENCY ROOM COURSE: The patient was started on Protonix drip, IV fluid was given. PHYSICAL EXAMINATION: VITAL SIGNS: Currently, blood pressure 155/60, pulse 77, respiratory rate 18, temperature 98.5, saturation 95% on room air. Weight 73.4 kg. GENERAL: The patient is currently alert and awake, no obvious acute distress. HEENT: Head; normocephalic, atraumatic. Eyes; pupils round, reactive to light. Extraocular muscles intact. Conjunctiva pale. ENT, pale mucous membrane. Moist mucous membrane. No oral lesion. No pharyngeal erythema. No exudate. NECK: Supple. No JVD. No meningeal signs of irritation. LUNGS: Wheezing heard on both upper lung jackson. No rales. No accessory muscles of respiration in use. CARDIAC: S1 and S2 regular. No murmur. No gallop. No rub. ABDOMEN: Soft. No epigastric tenderness. No Castro sign. No peritoneal sign. No organomegaly. No mass. BACK: Unremarkable. No CVA tenderness. EXTREMITIES: Upper extremity, passive movement of all joints are normal. Normal lower extremity. No edema. Good distal pulsation. SKIN: No skin rash. HEMATOLOGICAL: No lymphadenopathy. NEUROLOGIC: Nonfocal examination. IMAGING STUDIES: EKG showing nonspecific normal sinus rhythm, nonspecific ST-T changes. Chest x-ray, hyperinflation, but no acute cardiopulmonary process. SIGNIFICANT LABORATORY DATA: CBC; WBC 10.3, hemoglobin 7.4 and then 8.1, platelet 189. INR 1.2. Sodium 141, potassium 5.1, chloride 108, carbon dioxide 22, anion gap 16, BUN 67, creatinine 1.19, glucose 391, calcium 8.7. LFT; AST 12, ALT 15, alkaline phosphatase 124, albumin 3.7. Cardiac enzyme negative x2. Urinalysis unremarkable. ASSESSMENT/PLAN: 1. Acute upper gastrointestinal bleed. Protonix drip will be continued. We will repeat H and H later on today. If hemoglobin drops below 8, then we will consider blood transfusion 1 unit. Gastroenterology will be consulted. The patient will need upper endoscopy for diagnostic reason. We will repeat CBC again tomorrow. We will monitor for any hemodynamic compromise. 2. Anemia due to acute blood loss. The patient was given 0.5 unit of blood transfusion. We will repeat ferritin tomorrow. If ferritin is low, then we will consider wean off her IV. We will monitor H and H. For further evaluation, diesel stationary engineer is consulted. We will check stool for occult blood one time. 3. Hyperglycemia associated with diabetes type 2. We will check hemoglobin A1c to see overall control. We will resume the patient's home insulin, Lantus insulin as well as NovoLog insulin and insulin as per sliding scale. Diabetic diet will be given when the patient is able to take p.o. Watch for hypoglycemia. 4. Coronary artery disease, peripheral vascular disease. We will continue lisinopril 10 mg at bedtime, metoprolol succinate 25 mg at bedtime, and Imdur 30 mg p.o. daily. We will hold on aspirin and Plavix because of bleeding. 5. Dyslipidemia. Continue Lipitor 20 mg p.o. at bedtime. 6. Wheezing. We did a chest x-ray and the chest x-ray showing hyperinflation. No pneumonia. We will continue with DuoNeb q.6 hourly. We will discontinue IV fluid. 7. Obesity with body mass index 33. Dietary education given. Weight loss education given. 8. Deep vein thrombosis prophylaxis sequential compression device boots. No Lovenox because of bleeding. 9. Gastrointestinal prophylaxis. The patient is already on Protonix therapy. 10. Code status. The patient is full code. The patient's is surrogate decision maker. 11. Disposition plan, based on clinical course. We are expecting the patient's stay in hospital more than 2 midnights. Plan of care discussed with the patient and family member in detail. Job ID: [id number]
[2018-10-16] MEDS ORDERED: Furosemide 40 MG/4 ML VIAL SLOW IVP SCH ×2 (13:30→17:00)
[2018-10-16] MEDS: Pantoprazole 80 MG, Admixture Fee 1 EACH in Sodium Chloride 0.9% 100 ML IVPB SCH (14:30)
[2018-10-16] MEDS: HumaLOG 300 UNITS/3 ML VIAL SC PRN ×2 (14:50→17:50)
[2018-10-16] MEDS: Atorvastatin Calcium 20 MG TAB PO SCH (20:43)
[2018-10-16] MEDS: Lisinopril 5 MG TAB PO SCH (20:43)
[2018-10-16] MEDS: Insulin Glargine 30 UNITS in Pre-Filled Syringe 1 EACH SC SCH (20:46)
[2018-10-16] MEDS: HumaLOG 300 UNITS/3 ML VIAL SC SCH (20:47)
[2018-10-16] MEDS: Isosorbide Mononitrate (ER) 30 MG TAB PO SCH (20:52)
[2018-10-16] MEDS ORDERED: Non-Formulary Item 1 EACH (Insulin Detemir [Levemir] 30 UNITS) SC SCH (21:00)
[2018-10-16] MEDS ORDERED: Non-Formulary Item 1 EACH (Insulin Aspart [Novolog] 15 UNIT) SC SCH (21:00)
[2018-10-17] MEDS: Pantoprazole 80 MG, Admixture Fee 1 EACH in Sodium Chloride 0.9% 100 ML IVPB SCH (02:51)
[2018-10-17 05:45] LABS: #Basophils 0.1 thou/uL (0.0-0.2); #Eosinphils 0.4 thou/uL (0.0-0.7); #Lymphocytes 1.9 thou/uL (1.20-3.40); #Neutrophils 7.9 thou/uL (1.40-6.50); %Basophils 0.7 % (0.0-1.0); %Eosinophils 3.5 % (0.0-10.0); %Lymphocytes 16.9 % (21.0-51.0); %Monocytes 8.5 % (0.0-10.0); %Neutrophils 70.4 % (42.0-75.0); Hemoglobin 9.5 g/dL (12.0-16.0); Mean Corpuscular HGB CONC 33.2 g/dL (32.0-36.0); Mean Corpuscular Hemoglobin 30.1 pg (27.0-31.0); Mean Corpuscular Volume 90.7 fL (78.0-98.0); Mean Platelet Volume 7.7 fL (7.4-10.4); Platelet Count 211 thou/uL (130-400); RBC Distribution Width 13.3 % (11.5-14.5); Red Blood Cell (RBC) Count 3.15 mill/uL (4.20-5.40); White Blood Cell (WBC) Count 11.2 thou/uL (4.8-10.8)
[2018-10-17 05:50] LABS: Hemoglobin A1c 6.9 % (4.0-6.0)
[2018-10-17 06:02] LABS: ALT (SGPT) 13 U/L (8-55); AST (SGOT) 20 U/L (5-34); Albumin 3.6 g/dL (3.4-4.8); Alkaline Phosphatase 111 U/L (40-150); Anion Gap 14 mmol/L (10-20); BUN (Urea Nitrogen) 31 mg/dL (9.8-20.1); Bilirubin, Total 0.8 mg/dL (0.2-1.2); Calc. Creatinine Clearance 59 mL/min (70-130); Calcium 8.8 mg/dL (7.8-10.44); Carbon Dioxide 25 mmol/L (23-31); Chloride 108 mmol/L (98-107); Estimated GFR-MDRD 50; Globulin 2.7 g/dL (2.4-3.5); Glucose 109 mg/dL (80-115); Potassium 3.9 mmol/L (3.5-5.1); Protein, Total 6.3 g/dL (6.0-8.3); Sodium 143 mmol/L (136-145)
[2018-10-17] MEDS: HumaLOG 300 UNITS/3 ML VIAL SC SCH ×2 (07:29→21:19)
[2018-10-17] MEDS: Insulin Glargine 80 UNITS in Pre-Filled Syringe 1 EACH SC SCH (07:30)
[2018-10-17] MEDS ORDERED: INSULIN DETEMIR SC SCH (09:00)
--- NOTE | 2018-10-17 09:22 | CON ---
DATE OF CONSULTATION: 10/16/2018 REASON FOR CONSULTATION: Hematemesis, anemia due to blood loss. HISTORY OF PRESENT ILLNESS: Ms. Debby Osorio is a very pleasant 68-year-old female, who lives in [place]. Her regular doctor is Dr. Sreekanth Boyd. The patient went to [facility] yesterday after vomiting at home. The patient states she did not notice how the vomiting look. However, as per , he saw some coffee-ground vomiting and fresh blood. She came to [facility] and was transferred to [facility] in [place]. On the way, she got some blood transfer. Apparently, the blood bag burst opened and she only got half a munoz of blood. The blood count came up to total of 8.1 after half a munoz of blood. The patient is comfortable at present. She complains of wheezing since yesterday. She is also having coughing. She was spitting some mucoid material. The patient has no prior history of COPD, chronic bronchitis. She states that the wheezing started couple of days ago. She had no fever. A chest x-ray is normal. She is hard of hearing and she tells me that she did vomit three times at home, but she does not sure how the vomiting look. However, the says that he saw some fresh blood vomiting. The patient has no prior history of peptic ulcer disease. She denies abdominal pain, indigestion, or dyspepsia. No history of heartburn. At the present time, she actually feels better except for the wheezing. Her bowel movements are fairly regular. No history of any hematochezia or any melena. The other relevant history that she has an insulin-dependent diabetes mellitus and her blood sugar has been running very high in fact taking insulin. Her sugar was yesterday at 400. No relevant history. MEDICAL ILLNESSES: 1. Type 2 diabetes mellitus. 2. Peripheral vascular disease, status post stenting. 3. Coronary artery disease, status post stenting. 4. Hyperlipidemia. 5. Obesity. No history of COPD or emphysema. PAST SURGICAL HISTORY: 1. Carotid endarterectomy. 2. Rectal reconstruction, childhood. 3. . 4. Tonsillectomy. 5. Cardiac catheterization with stent placement . Her regular mainspring fabrication supervisor is Dr. Stephen Krishnamurthy. No history of depression or anxiety. SOCIAL HISTORY: The patient never smoked, but she has secondhand smoking from her and is a chronic smoker. No alcohol intake. No history of drug abuse. ALLERGIES: CODEINE. FAMILY HISTORY: No family history of any heart disease, stroke, or cancer. MEDICATIONS: 1. Aspirin 81 mg once a day. 2. Plavix 75 mg once a day. 3. NovoLog insulin 15 units b.i.d. 4. Levemir 80 units in the morning and 30 units at nighttime. 5. Imdur 30 mg once a day. 6. Lisinopril 10 mg once a day. 7. Toprol-XL 25 mg once a day. 8. Zocor 40 once a day. REVIEW OF SYSTEMS: Ten-point system review; CONSTITUTIONAL: No history of fever. No weight loss. She has good exercise tolerance. HEENT: No chronic headache. No dizziness. ENT; no impaired vision. No diplopia. No ear discharge, but has hearing loss. Throat; no sore throat. No dysphagia. No history of any hemoptysis. CARDIOVASCULAR SYSTEM: No chest pain. No palpitation, dyspnea, orthopnea, or PND. GI: She had nausea and vomiting with vomiting blood. No history of abdominal pain. No indigestion. No reflux symptoms. No hematochezia. UROLOGY: No dysuria, frequency of urination, or hematuria. MUSCULOSKELETAL: Not known. NEUROENDOCRINE: Not known. PHYSICAL EXAMINATION: GENERAL: She is obese, appears comfortable. She is actually wheezing. I can hear wheezing without putting stethoscope on the chest. VITAL SIGNS: Afebrile. Pulse is 77 and blood pressure is 150/70. HEENT: Conjunctivae clear. NECK: Supple. No adenitis or thyromegaly noted. CARDIOVASCULAR SYSTEM: First and second heart sounds heard are normal. LUNGS: Bilateral wheezing and rhonchi. ABDOMEN: Soft. Abdomen is nondistended. Abdomen is nontender. No organomegaly or masses. Bowel sounds normal. EXTREMITIES: Reveal no edema. INSURANCE ADVISOR: Grossly within normal limits. LABORATORY DATA: Shows a WBC 10,300, hemoglobin 7.4, came with 8.1, dropped to 7.9 today. INR is 1.2. Platelet count is 189,000. Sodium 141, potassium 3.9, chloride 108, bicarb 22, BUN 67, creatinine 1.19, glucose 391, calcium 8.7. AST 12, ALT 15, alkaline phosphatase 124, and albumin 3.4. Cardiac enzymes negative. CLINICAL IMPRESSION: 1. A 68-year-old female with hematemesis. She had no abdominal pain. The patient takes aspirin and Plavix. Possible vascular ectasia versus bleeding ulcer. 2. Anemia due to blood loss. 3. Hyperglycemia. 4. Possible chronic kidney disease versus acute kidney injury, BUN is elevated. 5. Diabetes mellitus. 6. Coronary artery disease, status post stent placement. 7. Peripheral vascular disease, status post stent placement. RECOMMENDATIONS: 1. Neb treatments q.6 hours, transfuse PPI. 2. We will defer endoscopy until tomorrow if there is wheezing and we will start around the clock neb treatment. Job ID: [id number] MTDD
--- NOTE | 2018-10-17 09:52 | OP ---
DATE OF PROCEDURE: 10/17/2018 PROCEDURE PERFORMED: Esophagogastroduodenoscopy with biopsy. PREOPERATIVE DIAGNOSIS: Hematemesis. DESCRIPTION OF PROCEDURE: Informed consent was obtained from the patient. She was sedated with total intravenous anesthesia. The bite block was placed and the endoscope was advanced easily to the second portion of the duodenum and retroflexion was performed in the stomach. The esophagus had a slight distal esophageal ring with a 1 cm hiatal hernia. These were left alone. The esophagus was otherwise normal. The stomach had erosive gastritis throughout the antrum. Biopsies were obtained to rule out Helicobacter pylori. Retroflexed views in the stomach revealed two small diverticula in the fundus of the stomach. These had no signs of bleeding or other inflammation around them. The pylorus and first and second portions of the duodenum were normal. IMPRESSION: 1. Erosive esophagitis. Biopsies were obtained to rule out Helicobacter pylori. She has been taking naproxen PM in addition to aspirin and Plavix. 2. Slight distal esophageal ring with a 1 cm hiatal hernia, left alone. 3. Two small diverticula in the fundus of the stomach. 4. Otherwise normal EGD. RECOMMENDATIONS: 1. Discontinue naproxen or other NSAIDs. 2. Proton pump inhibitor daily. 3. Await histopathology. 4. Advance diet. I would anticipate she should be ready to discharge home from a GI perspective when she is tolerating oral diet. 5. I will sign off. Please call if GI can help. 6. It should be okay to restart her aspirin and Plavix tomorrow. Job ID: [id number]
[2018-10-17] MEDS: HumaLOG 300 UNITS/3 ML VIAL SC PRN ×2 (11:59→18:02)
[2018-10-17] MEDS: Lisinopril 5 MG TAB PO SCH ×2 (21:18→21:48)
[2018-10-17] MEDS: Atorvastatin Calcium 20 MG TAB PO SCH (21:19)
[2018-10-17] MEDS: Isosorbide Mononitrate (ER) 30 MG TAB PO SCH ×2 (21:19→21:47)
[2018-10-17] MEDS: Insulin Glargine 30 UNITS in Pre-Filled Syringe 1 EACH SC SCH (21:20)
--- NOTE | 2018-10-18 06:07 | PDOC.HOSPP ---
- Subjective Encounter Date: 10/10/18 Encounter Time: 12:30 Subjective: pt up in bed asleep, post egd - Objective Vital Signs & Weight: Vital Signs (12 hours) Temp Pulse Resp BP Pulse Ox 10/18/18 03:35 98.8 F 83 16 108/51 L 93 L 10/17/18 23:44 98.2 F 86 18 116/53 L 93 L 10/17/18 21:48 87 10/17/18 20:00 98.2 F 87 16 106/46 L 92 L 10/17/18 18:37 88 16 93 L Weight Weight 169 lb I&O: 10/16/18 10/17/18 10/18/18 06:59 06:59 06:59 Intake Total 1473 720 Output Total 2800 200 Balance -1327 520 Result Diagrams: 10/17/18 05:26 10/17/18 05:26 Additional Labs: Accuchecks 10/18/18 10/17/18 10/17/18 05:42 20:36 16:43 POC Glucose 128 H 388 H 302 H 10/17/18 11:08 POC Glucose 275 H ROS - Review of Systems Cardiovascular: denies: chest pain, palpitations, orthopnea, paroxysmal noc. dyspnea, edema, light headedness, other Gastrointestinal: denies: nausea, vomitting, abdominal pain, diarrhea, constipation, melena, hematochezia, other Genitourinary: denies: dysuria, frequency, incontinence, hematuria, retention, other - Medication Medications: Active Medications Generic Name Dose Route Start Last Admin Trade Name Freq PRN Reason Stop Dose Admin Albuterol/Ipratropium 3 ml 10/16/18 13:00 10/18/18 00:28 Duoneb NEB Not Given [id number] JERRICA Atorvastatin Calcium 20 mg 10/16/18 21:00 10/17/18 21:19 Lipitor PO 20 mg HS JERRICA Administration Insulin Glargine 30 units/ 0.3 mls @ 0 mls/hr 10/16/18 21:00 10/17/18 21:20 Miscellaneous Medication SC 0.3 mls HS JERRICA Administration Insulin Glargine 80 units/ 0.8 mls @ 0 mls/hr 10/17/18 09:00 10/17/18 07:30 Miscellaneous Medication SC Not Given QAM JERRICA Insulin Human Lispro 0 units 10/16/18 10:29 10/17/18 18:02 Humalog SC 11 unit .AGGRESSIVE SLIDING PRN Administration Aggressive Correctional Scale Insulin Human Lispro 15 units 10/16/18 21:00 10/17/18 21:19 Humalog SC 15 unit BID JERRICA Administration Isosorbide Mononitrate 30 mg 10/16/18 21:00 10/17/18 21:47 Imdur Er PO Not Given HS JERRICA Lisinopril 10 mg 10/16/18 21:00 10/17/18 21:48 Zestril PO Not Given HS JERRICA Metoprolol Succinate 25 mg 10/16/18 21:00 10/17/18 21:48 Toprol Xl PO Not Given HS JERRICA Sodium Chloride 10 ml 10/16/18 21:00 10/17/18 21:20 Flush - Normal Saline IVF 10 ml Q12HR JERRICA Administration - Exam ENT: negative: normocephalic atraumatic, no oropharyngeal lesions, moist mucosa , dry oral mucosa Neck: negative: supple, symmetric, no JVD, no thyromegaly, no lymphadenopathy, no carotid bruit, JVD Heart: negative: RRR, no murmur, no gallops, no rubs, normal peripheral pulses, irregular, diminshed peripheral pulses, murmur present, II/IV, III/IV Hosp A/P (1) Acute GI bleeding Code(s): K92.2 - GASTROINTESTINAL HEMORRHAGE, UNSPECIFIED Status: Acute (2) Diabetes type 2, controlled Code(s): E11.9 - TYPE 2 DIABETES MELLITUS WITHOUT COMPLICATIONS Status: Chronic (3) Hypertension Code(s): I10 - ESSENTIAL (PRIMARY) HYPERTENSION Status: Chronic Qualifiers: - Plan will start pt back on asa/plavix per gi. if hh stable will discharge pt home. pt 's states she has a dry cough and i did recommend to stop lisinopril but he is reluctant to do so. will differ this to primary care
[2018-10-18] MEDS: Insulin Glargine 80 UNITS in Pre-Filled Syringe 1 EACH SC SCH (09:27)
[2018-10-18] MEDS: HumaLOG 300 UNITS/3 ML VIAL SC SCH (09:28)
--- NOTE | 2018-10-18 12:09 | DIS ---
DATE OF ADMISSION: 10/16/2018 DATE OF DISCHARGE: 10/18/2018 PRIMARY CARE PHYSICIAN: Sreekanth Boyd MD. DISCHARGE DISPOSITION: Home. PRIMARY DISCHARGE DIAGNOSES: 1. Acute upper gastrointestinal bleed. 2. Anemia due to acute blood loss. 3. Erosive esophagitis. 4. Stomach diverticulum. 5. Uncontrolled diabetes. SECONDARY DISCHARGE DIAGNOSES: 1. Chronic kidney disease, stage 3. 2. Diabetes, type 2. 3. Hypertension. 4. Obesity. 5. Chronic diastolic stage C heart failure. PRIMARY PROCEDURE/OPERATION: Upper endoscopy was performed by Dr. Huynh and the patient is found with erosive esophagitis and stomach diverticulum. Biopsy was obtained. Pathology report is pending. RADIOLOGICAL INVESTIGATION: Chest x-ray was unremarkable. SIGNIFICANT LABORATORY DATA: WBC 11.2, hemoglobin 9.5, and platelet 211. Sodium 143, creatinine 1.08. LFT normal. Ferritin 100.6. Hemoglobin A1c 6.9. DISCHARGE MEDICATIONS: 1. Aspirin 81 mg p.o. at bedtime. 2. Plavix 75 mg p.o. at bedtime. 3. NovoLog insulin 15 units subcu b.i.d. 4. Levemir 30 units subcu at bedtime. 5. Levemir 80 units subcu in the morning. 6. Imdur 30 mg at bedtime. 7. Lisinopril 10 mg at bedtime. 8. Toprol-XL 25 mg p.o. at bedtime. 9. Zocor 40 mg p.o. at bedtime. 10. Protonix 40 mg p.o. daily. CONTRAINDICATION: None. CODE STATUS: Full code. INPATIENT ANCHOR OPERATOR: Dr. Morgan and Dr. Huynh was following while in hospital. TEST RESULTS PENDING ON DISCHARGE: Pathology report from diverticulum. ALLERGIES: CODEINE. DISCHARGE PLAN: Posthospital, the patient is instructed to follow up with Dr. Huynh for followup on pathology report. The patient is instructed to make appointment with primary care physician in 1 week. HOSPITAL COURSE: A 68-year-old female who was having difficulty controlling her blood sugar at home and she was also having hematemesis and that is why she was admitted. Please see my HPI for further details. The patient had acute blood loss anemia and during this hospital course, she was given 1 unit of blood transfusion. Air Saw Operator did upper endoscopy and the patient was found with erosive esophagitis and stomach diverticulum. Pathology report is pending from diverticulum. The patient's blood sugar was well controlled. The patient's hemoglobin remained stable. The patient was asymptomatic by the time of discharge. PHYSICAL EXAMINATION: I have seen and examined the patient at the bedside today. VITAL SIGNS: Currently, temperature 98.2, pulse 91, respiratory rate 18, saturation 93% on room air, and blood pressure 130/63. Weight 164 pounds. GENERAL: The patient is currently alert and oriented x3. HEENT: Head; normocephalic, atraumatic. LUNGS: Clear to auscultation without any rhonchi or rales. CARDIAC: S1 and S2. Regular without any murmur. ABDOMEN: Soft and benign without any tenderness. EXTREMITIES: No edema. NEUROLOGIC: Nonfocal examination. Gastroenterology has cleared her to start on aspirin and Plavix today. We changed to Protonix p.o. daily. We advised the patient to avoid NSAIDs. Overall, the patient is medically stable for discharge today. Job ID: [id number]
[2018-10-18 13:51] VITALS: BP 133/62; TEMP 97.9
[2018-10-18] MEDS ORDERED: Clopidogrel Bisulfate 75 MG TAB PO SCH ×2 (21:00)
[2018-10-18] MEDS ORDERED: Aspirin Chewable 81 MG TAB PO SCH (21:00)
== END 2018-10-18 14:50 | disposition home or self-care (01) | DRG 378 ==
LOC: ERS 03:10 → 2NO 05:37
PROVIDERS: ADMIT Internal Medicine; ATTEND Internal Medicine
PROC: 30233N1 Transfusion of Nonautologous Red Blood Cells into Peripheral Vein, Percutaneous Approach (ICD-10-PCS; 2018-10-16)
PROC: 0DB58ZX Excision of Esophagus, Via Natural or Artificial Opening Endoscopic, Diagnostic (ICD-10-PCS; principal; 2018-10-17)
PROC: 0DB78ZX Excision of Stomach, Pylorus, Via Natural or Artificial Opening Endoscopic, Diagnostic (ICD-10-PCS; 2018-10-17)
DX: K29.71 Gastritis, unspecified, with bleeding (principal); D62 Acute posthemorrhagic anemia; I13.0 Hypertensive heart and chronic kidney disease with heart failure and stage 1 through stage 4 chronic kidney disease, or unspecified chronic kidney disease; I50.32 Chronic diastolic (congestive) heart failure; K31.4 Gastric diverticulum; K22.2 Esophageal obstruction; E11.65 Type 2 diabetes mellitus with hyperglycemia; E66.9 Obesity, unspecified; E11.51 Type 2 diabetes mellitus with diabetic peripheral angiopathy without gangrene; I25.10 Atherosclerotic heart disease of native coronary artery without angina pectoris; E78.5 Hyperlipidemia, unspecified; K44.9 Diaphragmatic hernia without obstruction or gangrene; E11.22 Type 2 diabetes mellitus with diabetic chronic kidney disease; N18.3 Chronic kidney disease, stage 3 (moderate); Z77.22 Contact with and (suspected) exposure to environmental tobacco smoke (acute) (chronic); Z95.818 Presence of other cardiac implants and grafts; Z79.01 Long term (current) use of anticoagulants; Z79.82 Long term (current) use of aspirin; Z79.4 Long term (current) use of insulin; Z79.899 Other long term (current) drug therapy; Z88.5 Allergy status to narcotic agent; Z68.32 Body mass index [BMI] 32.0-32.9, adult
CPT/HCPCS: 36415; 36416; 71045; 80053; 82728; 83036; 85025; 86850; 86900; 86901; 88305; 88312; 93005; 94640; 96361; 96374; C9113; J1815; J1940; J3490; J7620; P9016

== ENCOUNTER 2022-05-04 14:16 | Emergency (ER) | payer MEDICARE ==
[2022-05-04] MEDS ORDERED: Aspirin Chewable 81 MG TAB ONE (15:06)
[2022-05-04] MEDS ORDERED: Furosemide 40 MG/4 ML VIAL ONE (15:06)
[2022-05-04 15:10] LABS: #Eosinphils 0.1 thou/uL (0.0-0.7); #Lymphocytes 0.8 thou/uL (1.20-3.40); #Monocytes 0.6 thou/uL (0.11-0.59); #Neutrophils 4.9 thou/uL (1.40-6.50); %Basophils 0.4 % (0.0-1.0); %Eosinophils 1.6 % (0.0-10.0); %Lymphocytes 11.7 % (21.0-51.0); %Monocytes 9.8 % (0.0-10.0); %Neutrophils 76.5 % (42.0-75.0); Hemoglobin 10.9 g/dL (12.0-16.0); Mean Corpuscular HGB CONC 31.9 g/dL (32.0-36.0); Mean Corpuscular Hemoglobin 29.7 pg (27.0-31.0); Mean Corpuscular Volume 93.1 fl (78.0-98.0); Mean Platelet Volume 8.2 fL (7.4-10.4); Platelet Count 187 10x3/uL (130-400); RBC Distribution Width 13.9 % (11.5-14.5); Red Blood Cell (RBC) Count 3.68 mill/uL (4.20-5.40); White Blood Cell (WBC) Count 6.4 10x3/uL (4.8-10.8)
[2022-05-04 15:37] LABS: ALT (SGPT) 11 U/L (8-55); AST (SGOT) 15 U/L (5-34); Albumin 3.8 g/dL (3.4-4.8); Alkaline Phosphatase 241 U/L (40-110); Anion Gap 9 mmol/L (10-20); BUN (Urea Nitrogen) 21 mg/dL (9.8-20.1); Bilirubin, Total 0.8 mg/dL (0.2-1.2); Calc. Creatinine Clearance 0 mL/min (70-130); Calcium 8.4 mg/dL (7.8-10.44); Carbon Dioxide 31 mmol/L (23-31); Chloride 101 mmol/L (98-107); Estimated GFR 52; Globulin 2.7 g/dL (2.4-3.5); Glucose 239 mg/dL (83-110); Magnesium 2.3 mg/dL (1.6-2.6); Potassium 4.2 mmol/L (3.5-5.1); Protein, Total 6.5 g/dL (5.8-8.1); Sodium 137 mmol/L (136-145)
== END 2022-05-04 19:06 | disposition short-term general hospital (02) ==
LOC: ERS 14:16
DX: I50.9 Heart failure, unspecified (principal); E78.5 Hyperlipidemia, unspecified; E11.9 Type 2 diabetes mellitus without complications; Z79.4 Long term (current) use of insulin; Z79.899 Other long term (current) drug therapy; Z79.82 Long term (current) use of aspirin
CPT/HCPCS: 36415; 71045; 80053; 83735; 83880; 84484; 85025; 85379; 93005; 96374; J1940